=== PATIENT | female | born 1985 | race African-American/Black ===

== ENCOUNTER 2017-06-07 15:02 | Emergency (ER) | payer OTHER ==
[2017-06-07 15:07] VITALS: TEMP 97.9; BMI 35.5
[2017-06-07] MEDS ORDERED: MECLIZINE HCL 25 MG TABLET (FP) PO ONE (16:03)
[2017-06-07] MEDS ORDERED: SODIUM CHLORIDE 1,000 ML IV STA (16:03)
[2017-06-07] MEDS ORDERED: METOCLOPRAMIDE HCL INJECTION 10 MG/2 ML VIAL IVPB ONE (16:03)
--- NOTE | 2017-06-07 16:10 | PDOC ---
History of Present Illness - General History Source: Patient - History of Present Illness Timing/Duration: getting worse, intermittent Associated Symptoms: reports: headaches. denies: chest pain, diaphoresis, nausea/vomiting, seizure, shortness of breath, weakness <Shameka Polk - Last Filed: 06/07/17 18:48> <Mahesh Hayes - Last Filed: 06/07/17 20:43> - General Chief Complaint: Lightheaded Stated Complaint: DIZZINESS Time Seen by Provider: 06/07/17 15:35 Past History - Psycho/Social/Smoking Cessation Hx Anxiety: No Suicidal Ideation: No Smoking History: Current every day smoker Have you smoked in the past 12 months: Yes Number of Cigarettes Smoked Daily: 10 Information on smoking cessation initiated: No Hx Alcohol Use: No Drug/Substance Use Hx: No <Shameka Polk - Last Filed: 06/07/17 18:48> <Mahesh Hayes - Last Filed: 06/07/17 20:43> - Past Medical History Allergies/Adverse Reactions: Allergies Allergy/AdvReac Type Severity Reaction Status Date / Time No Known Allergies Allergy Verified 06/07/17 15:04 Home Medications: Ambulatory Orders Meclizine HCl [Antivert -] 25 mg PO TID #21 tablet 06/07/17 Review of Systems - Review of Systems Constitutional: No: Chills, Fever HEENTM: No: Blurred Vision, Ear Pain Respiratory: No: Shortness of Breath Cardiac (ROS): No: Chest Pain ABD/GI: No: Nausea, Vomiting Neurological: Yes: Headache, Dizziness. No: Numbness, Tingling, Weakness <Shameka Polk - Last Filed: 06/07/17 18:48> *Physical Exam - Vital Signs Last Vital Signs Temp Pulse Resp BP Pulse Ox 97.9 F 95 H 20 167/100 100 06/07/17 15:04 06/07/17 15:04 06/07/17 15:04 06/07/17 15:04 06/07/17 15:04 - Physical Exam General Appearance: Yes: Appropriately Dressed. No: Apparent Distress HEENT: positive: Normal Voice Neck: positive: Supple Respiratory/Chest: positive: Lungs Clear, Normal Breath Sounds. negative: Respiratory Distress Cardiovascular: positive: Regular Rate, S1, S2 Gastrointestinal/Abdominal: positive: Soft. negative: Tender Extremity: positive: Normal Inspection Integumentary: positive: Dry, Warm Neurologic: positive: Fully Oriented, Alert, Normal Mood/Affect, Motor Strength 5/5, Finger to Nose. negative: Facial Droop (no nystagmus, normal finger to nose, Mita intact, no ataxia, no drift), Sensory Deficit <Shameka Polk - Last Filed: 06/07/17 18:48> - Vital Signs Last Vital Signs Temp Pulse Resp BP Pulse Ox 97.9 F 68 17 132/82 100 06/07/17 15:04 06/07/17 20:42 06/07/17 20:42 06/07/17 20:42 06/07/17 20:42 <Mahesh Hayes - Last Filed: 06/07/17 20:43> ED Treatment Course - LABORATORY CBC & Chemistry Diagram: 06/07/17 16:00 06/07/17 16:00 - RADIOLOGY Radiology Studies Ordered: Category Date Time Status HEAD CT WITHOUT CONTRAST [CT] Stat CT Scan 06/07/17 16:03 Ordered <SamiShameka - Last Filed: 06/07/17 18:48> - LABORATORY CBC & Chemistry Diagram: 06/07/17 16:00 06/07/17 17:51 - ADDITIONAL ORDERS Additional order review: Laboratory Results 06/07/17 06/07/17 06/07/17 17:51 16:05 16:00 Sodium 140 Cancelled Potassium 3.5 Cancelled Chloride 105 Cancelled Carbon Dioxide 26 Cancelled Anion Gap 9 Cancelled BUN 7 Cancelled Creatinine 0.7 Cancelled Creat Clearance w eGFR > 60 Cancelled Random Glucose 89 Cancelled Calcium 9.1 Cancelled Total Bilirubin 0.3 Cancelled AST 9 L Cancelled ALT 19 Cancelled Alkaline Phosphatase 63 Cancelled Total Protein 7.5 Cancelled Albumin 3.9 Cancelled Urine Color Colorless Urine Appearance Clear Urine pH 7.0 Urine Protein Negative Urine Glucose (UA) Negative Urine Ketones Negative Urine Blood 1+ H Urine Nitrite Negative Urine Bilirubin Negative Urine Urobilinogen Negative Ur Leukocyte Esterase Negative Urine RBC <1 Urine WBC None Ur Epithelial Cells Rare Urine Bacteria Rare Urine HCG, Qual Negative 06/07/17 16:00 RBC 3.82 MCV 94.9 MCHC 33.6 RDW 13.1 MPV 9.4 Neutrophils % 64.0 Lymphocytes % 28.3 Monocytes % 6.5 Eosinophils % 0.6 Basophils % 0.6 - Medications Given in the ED: ED Medications Discontinued Medications Generic Name Dose Route Start Last Admin Trade Name Ja PRN Reason Stop Dose Admin Sodium Chloride 1,000 mls @ 1,000 mls/hr 06/07/17 16:03 06/07/17 17:19 Normal Saline - IV 06/07/17 17:02 1,000 mls/hr ASDIR STA Administration Meclizine HCl 25 mg 06/07/17 16:03 06/07/17 16:34 Antivert - PO 06/07/17 16:04 25 mg ONCE ONE Administration Metoclopramide HCl 10 mg 06/07/17 16:03 06/07/17 16:42 Reglan Injection - IVPB 06/07/17 16:04 10 mg ONCE ONE Administration <Mahesh Hayes - Last Filed: 06/07/17 20:43> Medical Decision Making - Medical Decision Making 06/07/17 16:05 31 yo F, denies any sig pmhx, here with dizziness. Patient states since last week has been experiencing sensation of the room spinning mostly when she elevates her arm. States on one occasion she almost passed out while at the supermarket. Also complaining of intermittent right occipital headache. No visual changes, nausea, vomiting, visual, focal weakness, sensory changes, chest pain or shortness of breath. No recent URI symptoms or tinnitus. No history of similar episode in the past. No new meds See exam Intermittent vertigo w/ headache Hypertensive in ED to 160s/100 w/ no focal deficit ?peripheral vs central -CT head given elevated BP -labs -meclizine/IVF -dispo pending 06/07/17 18:38 Pt reports significant improvement w/ medications. CTH and labs negative. Rpt vitals pending. Anticipate w/ PMD and possible neuro f/u 06/07/17 18:40 06/07/17 18:49 <Shameka Polk - Last Filed: 06/07/17 18:48> *DC/Admit/Observation/Transfer <Shameka Polk Last Filed: 06/07/17 18:48> - Discharge Dispostion Admit: No <Mahesh Hayes - Last Filed: 06/07/17 20:43> Diagnosis at time of Disposition: Vertigo - Discharge Dispostion Disposition: HOME Condition at time of disposition: Improved - Prescriptions Prescriptions: Meclizine HCl [Antivert -] 25 mg PO TID #21 tablet - Referrals Referrals: Lyla Florian MD [Primary Care Provider] - Ivan Armstrong MD [Staff Physician] - - Patient Instructions Printed Discharge Instructions: Vertigo Additional Instructions: Take meclizine as directed for vertigo. Please follow up with your PMD Please follow up with Dr Armstrong of neurology if symptoms persist
[2017-06-07] MEDS ORDERED: METOCLOPRAMIDE HCL INJECTION 10 MG/2 ML VIAL ONE (16:29)
[2017-06-07] MEDS ORDERED: MECLIZINE HCL 25 MG TABLET (FP) ONE (16:29)
[2017-06-07 17:41] LABS: BASOPHIL 0.6 % (0-2.0); EOSINOPHIL 0.6 % (0-4.5); MCH 31.9 pg (25.7-33.7); MCHC 33.6 g/dl (32.0-36.0); MEAN CELL VOLUME 94.9 fl (80-96); MEAN PLT VOLUME 9.4 fl (7.5-11.1); PLATELET COUNT 245 K/MM3 (134-434); RDW 13.1 % (11.6-15.6); WHITE BLOOD COUNT 8.1 K/mm3 (4.0-10.0)
[2017-06-07 17:48] LABS: URINE APPEARANCE CLEAR; URINE BILIRUBIN NEGATIVE (NEGATIVE); URINE BLOOD 1+ (NEGATIVE); URINE COLOR COLORLESS; URINE GLUCOSE (UA) NEGATIVE (NEGATIVE); URINE KETONE NEGATIVE (NEGATIVE); URINE LEUK ESTERASE NEGATIVE (NEGATIVE); URINE NITRITE NEGATIVE (NEGATIVE); URINE PROTEIN NEGATIVE (NEGATIVE); URINE UROBILINOGEN NEGATIVE mg/dL (0.2-1.0)
[2017-06-07 18:55] LABS: URINE BACTERIA RARE /hpf (NONE SEEN); URINE RBC <1 /hpf (0-3)
[2017-06-07 19:35] LABS: ALBUMIN 3.9 g/dl (3.4-5.0); ALK PHOS 63 U/L (45-117); ANION GAP 9 (8-16); BILIRUBIN,TOTAL 0.3 mg/dL (0.2-1.0); CALCIUM 9.1 mg/dL (8.5-10.1); CO2 26 mmol/L (21-32); CREATININE 0.7 mg/dL (0.55-1.02); GLUCOSE,RANDOM 89 mg/dL (74-106); SGOT/AST 9 U/L (15-37); SGPT/ALT 19 U/L (12-78); TOT PROT 7.5 g/dl (6.4-8.2)
[2017-06-07 20:43] VITALS: BP 132/82; PULSE 68
== END 2017-06-07 20:47 | disposition home or self-care (01) ==
LOC: JER 15:02
PROC: 3E0337Z Introduction of Electrolytic and Water Balance Substance into Peripheral Vein, Percutaneous Approach (ICD-10-PCS; principal; 2017-06-07)
PROC: 3E033GC Introduction of Other Therapeutic Substance into Peripheral Vein, Percutaneous Approach (ICD-10-PCS; 2017-06-07)
DX: R42 Dizziness and giddiness (principal)
CPT/HCPCS: 36415; 70450-TC; 80053; 81003; 81015; 84703; 85025; 96361; 96374; 99283-25